=== PATIENT | female | born 1960 | race Two or more races ===

== ENCOUNTER 2018-04-18 05:12 | Day surgery (SDC) | payer OTHER ==
[2018-04-16 12:22] VITALS: BMI 23.1
[2018-04-18] MEDS ORDERED: SUCCINYLCHOLINE CHLORIDE 200 MG/10 ML VIAL ONE (07:09)
[2018-04-18] MEDS ORDERED: ROCURONIUM BROMIDE 50 MG/5 ML VIAL ONE (07:09)
[2018-04-18] MEDS ORDERED: fentaNYL CITRATE 250 MCG/5 ML VIAL ONE (07:09)
[2018-04-18] MEDS ORDERED: PROPOFOL 20 ML ONE (07:09)
[2018-04-18] MEDS ORDERED: LIDOCAINE HCL/PF 2% SDV 5ML VIAL ONE (07:10)
[2018-04-18] MEDS ORDERED: BUPIVACAINE HCL/PF 0.5% (5MG/ML) 10 ML VIAL ONE (07:10)
[2018-04-18] MEDS ORDERED: MIDAZOLAM HCL 2 MG/2 ML SINGLE DOSE VIAL ONE (07:38)
--- NOTE | 2018-04-18 07:53 | HP ---
History & Physical Update - History History: No Change - Physical Physical: No Change - Assessment Assessment: No Change - Plan Plan: No Change (H&P in chart from 04/02/2017)
[2018-04-18] MEDS ORDERED: DESFLURANE GAS 240 ML BOTTLE IH ONE (08:14)
[2018-04-18] MEDS ORDERED: ePHEDrine SULFATE 50 MG/1 ML AMPULE ONE (08:27)
[2018-04-18] MEDS ORDERED: ceFAZolin SODIUM 1 GM VIAL IVPB ONE (08:30)
[2018-04-18] MEDS ORDERED: BUPIVACAINE HCL/PF 0.5% (5MG/ML) 10 ML VIAL IJ ONE (09:20)
--- NOTE | 2018-04-18 09:39 | OP ---
Operative Note - Note: Operative Date: 04/18/18 Pre-Operative Diagnosis: right ovarian byst Operation: robotic assited right para-ovarian cystectomy Surgeon: Karley Peters Service Sprinkler Helper: Diamante Maldonado Anesthesiologist/PLUG OVERWRAP MACHINE TENDER: Dale Arroyo Anesthesia: General Specimens Removed: right ovarian cyst Estimated Blood Loss (mls): 20 Fluid Volume Replaced (mls): 1,000 Operative Report Dictated: Yes
[2018-04-18] MEDS ORDERED: oxyCODONE HCL 5 MG TABLET PO PRN (10:33)
[2018-04-18] MEDS ORDERED: ONDANSETRON 4 MG/2 ML VIAL IVPUSH PRN (10:33)
[2018-04-18] MEDS ORDERED: LACTATED RINGERS SOLUTION 1,000 ML IV SCH (10:45)
--- NOTE | 2018-04-18 10:48 | OP ---
DATE OF OPERATION: DATE OF DICTATION: 04/18/2018 PREOPERATIVE DIAGNOSES: 1. Right ovarian cyst. 2. Pelvic pain. OPERATION: Laparoscopic robotic ovarian cystectomy. POSTOPERATIVE DIAGNOSES: 1. Right paraovarian cyst. 2. Pelvic pain. SURGEON: Kellee Peters MD FAUCET POLISHER: IRAJ Fabian ANESTHESIA: General. ANESTHESIOLOGIST: Nurse Hog Confinement System Manager Jeff DESCRIPTION OF PROCEDURE: Patient was taken to the operating room, placed in the dorsal lithotomy position, prepped and draped in the usual sterile fashion. A timeout was performed in accordance with hospital regulation. Beverly catheter was inserted to the bladder. Attention was then drawn to the umbilicus where an 8-mm umbilical incision was made. Veress needle was inserted into the cavity. Approximately 3 to 4 L of CO2 was insufflated in the cavity. Veress needle was then removed, and an 8-mm trocar was then inserted. Laparoscope and camera attached. Visualization revealed a normal left ovary and a right 10-cm paraovarian cyst. The trocars were inserted on the left side, 2 trocars, 1 in the upper abdomen which was AirSeal cannula, 5-mm, and the second trocar was parallel to the umbilicus about 10 cm apart. Scalpel was then used to make incisions and trocars were inserted. Under direct visualization, 2 trocars were placed on the right parallel to each other 10 cm apart. Under direct visualization, 8-mm trocars were inserted. Da Froilan Robot was then side docked to the patient's bedside. Trocars were then inserted into the da Froilan Robot. Instruments were then inserted. Endoshears and bipolar grasper were then inserted on the right side, and then [place] was then inserted on the left. AirSeal was activated. After all instruments had been placed and everything confirmed, attention was then drawn to the console where control of the da Froilan Robot was then done. [place] was then used to elevate the right ovarian cyst and Endoshears were then used to make an opening in the cyst. The cyst was noted to be paraovarian in nature, not right ovary. Right ovary was noted to be normal, and the cyst was right underneath the fallopian tube. Cystectomy was then performed. Cyst wall was removed using blunt and sharp technique. Cyst wall was removed in 2 pieces and submitted to Pathology. Hemostasis was achieved. Cautery of the tissue was then done. Hemostasis was achieved. Irrigation performed. All instruments were then removed. CO2 was removed from the abdomen. Incisions were then closed using 4-0 Biosyn suture in a subcuticular fashion. Wound was washed and dressed. Estimated blood loss less than 5 mL. KELLEE PETERS M.D. [id number]
[2018-04-18 12:11] VITALS: PULSE 76; TEMP 97.9
--- NOTE | 2018-04-18 13:46 | SURG ---
Surgery Senior Account Executive Note Senior Account Executive: Diamante Maldonado PA-C Date of Service: 04/18/18 Diagnosis: right ovarian cyst Procedure: robotic assisted right para-ovarian cystectomy I was present for the entirety of the operative procedure. For further detail, please refer to operative report. Visit type - Case Type Case Type: Scheduled - Emergency Emergency Visit: No - New patient This patient is new to me today: Yes Date on this admission: 04/18/18
[2018-04-18 14:01] VITALS: BP 135/68
--- NOTE | 2018-04-19 13:54 | PATH ---
Surgical Pathology Report Patient Name: LARISSA RODRIGUES [facility]. Rec. #: [id number] /Age/Gender: 1960 (Age: 58) / F Account: [id number] Location: AMBULATORY SURG Taken: 04/18/2018 Received: 04/18/2018 Reported: 04/19/2018 Physicians: Karley Peters M.D. Specimen(s) Received RIGHT OVARIAN CYST Clinical History Right ovarian cyst Final Diagnosis OVARIAN CYST, RIGHT, ROBOTIC LAPAROSCOPIC CYSTECTOMY: CONSISTENT WITH SEROUS CYSTADENOMA. Electronically Signed Corie Daniel M.D. Gross Description Received in formalin labeled "right ovarian cyst," is a 4.0 x 2.0 x 1.2 cm aggregate multiple kaur-hinojosa, irregular portions of soft tissue, consistent with a disrupted ovarian cyst. Remote Operations Producer sections are submitted in 2 cassettes. DL/04/18/2018 saudi/04/18/2018
== END 2018-04-18 13:30 | disposition home or self-care (01) ==
LOC: JASUSAT 05:12
PROVIDERS: ATTEND Obstetrics & Gynecology
PROC: 0UB04ZZ Excision of Right Ovary, Percutaneous Endoscopic Approach (ICD-10-PCS; principal; 2018-04-18 08:00)
DX: N83.291 Other ovarian cyst, right side (principal)
CPT/HCPCS: 58662; S2900; 86850; 86900; 86901; 88307-TC; 94760